=== PATIENT | male | born 1980 | race Caucasian/White ===

== ENCOUNTER 2018-05-31 14:40 | Emergency (ER) | payer OTHER ==
[~2018-05-31] VITALS: Ht 180.3 cm; Wt 72.6 kg
[~2018-05-31 14:40] MED LIST: BACTRIM DS TAB1 EAC1 PO; BACTROBAN CREAM30 G1 TOP; CARISOPRODOL 3350 MG PO; HYDROCODONE-AP1 EAC6 PO; PREDNISONE 20 M20 M1 PO; ZANAFLEX4 MG PO
[2018-05-31 15:12] LABS: ABSOLUTE BASOPHILS 0.1 thou/uL (0.0-0.2); ABSOLUTE EOSINOPHILS 0.4 thou/uL (0.0-0.7); ABSOLUTE LYMPHOCYTES 6.1 thou/uL (0.8-5.3); ABSOLUTE MONOCYTES 0.9 thou/uL (0.0-1.2); ABSOLUTE NEUTROPHILS 4.3 thou/uL (1.6-8.1); BASOPHILS 0.7 %; HEMATOCRIT 51.6 % (42.0-52.0); HEMOGLOBIN 17.6 gm/dL (14.0-18.0); LYMPHOCYTES 52.3 %; MCH 31.3 pg (26.0-34.0); MCHC 34.2 g/dL (28.0-37.0); MCV 91.6 fL (80.0-100.0); MONOCYTES 7.5 %; MPV 6.9 fl. (7.2-11.1); NUCLEATED RBCS 0 /100WBC; PLATELET COUNT* 363 thou/uL (150-400); POLYS 36.5 %; RBC 5.63 mil/uL (4.50-6.00); RDW-CV 13.6 % (10.5-14.5); WBC 11.7 thou/uL (4.0-11.0)
[2018-05-31 15:20] LABS: ANION GAP 10 mmol/L (7-16); BUN 15 mg/dL (7-18); CALCIUM 8.9 mg/dL (8.5-10.1); CHLORIDE 102 mmol/L (98-107); CO2 27 mmol/L (21-32); GLUCOSE 100 mg/dL (70-99); POTASSIUM 3.3 mmol/L (3.5-5.1); SODIUM 139 mmol/L (136-145)
[2018-05-31 15:26] LABS: ALKALINE PHOSPHATASE 108 U/L (46-116); LIPASE 181 U/L (73-393); SGOT 20 U/L (15-37); SGPT 41 U/L (30-65); TOTAL BILIRUBIN 0.7 mg/dL (<0.1-1.0); TROPONIN-I LEVEL <0.06 ng/mL (<0.06)
[2018-05-31] MEDS ORDERED: HYDROXYZINE HCL25 M1 PO (16:06)
[2018-05-31] MEDS ORDERED: XANAX 0.5 MG0.5 MG PO (16:06)
[2018-05-31 16:24] VITALS: BP 132/82
--- NOTE | 2018-06-01 13:50 | EKG ---
[place] [address] ELECTROCARDIOGRAM REPORT Name: MEHRAN FREEMAN Room: [facility].#: [id number] Admission: 05/31/18 Attend Phys: Discharge: 05/31/18 Date of : 82 Report #: [id number] THIS REPORT FOR: //name// [facility] ED Test Date: 2018-05-31 Test Time: 14:54:19 Pat Name: MEHRAN FREEMAN Department: Room: Gender: M Peer Financial Counselor: MARIAJOSE : 1980 Requested By: Iesha Marsh Order Number: [id number] MD: Dimitrios Forrester Measurements Intervals [place] Rate: 117 P: 66 NM: 128 QRS: 39 QRSD: 89 T: 5 QT: 316 QTc: 441 Interpretive Statements Sinus tachycardia Left atrial enlargement RSR' in V1 or V2, probably normal variant No previous ECG available for comparison Electronically Signed On 06-01-2018 13:50:30 LARRY CAR OPERATOR by Dimitrios Forrester [email or web address] <ELECTRONICALLY SIGNED> By: Dimitrios Forrester MD, [facility] 06/01/18 1350 1454 1454 Dimitrios Forrester MD, FACC /EPI
== END 2018-05-31 16:25 | disposition home or self-care (01) ==
LOC: M.ERS 14:40
PROVIDERS: Physician Assistant
DX: F41.9 Anxiety disorder, unspecified (principal); R11.2 Nausea with vomiting, unspecified; R07.89 Other chest pain; F17.200 Nicotine dependence, unspecified, uncomplicated; Z88.1 Allergy status to other antibiotic agents

== ENCOUNTER 2018-07-11 09:56 | Emergency (ER) | payer OTHER ==
[~2018-07-11] VITALS: Ht 180.3 cm; Wt 79.8 kg
[~2018-07-11 09:56] MED LIST changes: +HYDROXYZINE HCL25 M1 PO; +XANAX 0.5 MG0.5 MG PO
[2018-07-11] MEDS ORDERED: LEXAPRO 10 MG T10 M2 PO (10:13)
[2018-07-11] MEDS ORDERED: BUSPIRONE HCL10 MG PO (10:13)
[2018-07-11] MEDS ORDERED: XANAX1 MG PO (10:29)
[2018-07-11 10:54] VITALS: BP 132/80
== END 2018-07-11 10:52 | disposition home or self-care (01) ==
LOC: M.ERS 09:56
DX: F41.9 Anxiety disorder, unspecified (principal); F17.200 Nicotine dependence, unspecified, uncomplicated; Z88.1 Allergy status to other antibiotic agents

== ENCOUNTER 2018-11-23 16:40 | Emergency (ER) | payer OTHER ==
[~2018-11-23] VITALS: Ht 180.3 cm; Wt 70.3 kg
[~2018-11-23 16:40] MED LIST changes: +BUSPIRONE HCL10 MG PO; +LEXAPRO 10 MG T10 M2 PO; +XANAX1 MG PO
[2018-11-23] MEDS ORDERED: VALIUM5 MG PO (17:14)
[2018-11-23] MEDS ORDERED: NORCO 5-325 TA1 EAC1 PO (17:42)
[2018-11-23 18:30] VITALS: BP 139/93
== END 2018-11-23 18:31 | disposition home or self-care (01) ==
LOC: M.ERS 16:40
DX: S42.021A Displaced fracture of shaft of right clavicle, initial encounter for closed fracture (principal); T24.202A Burn of second degree of unspecified site of left lower limb, except ankle and foot, initial encounter; T31.0 Burns involving less than 10% of body surface; F41.0 Panic disorder [episodic paroxysmal anxiety]; Z88.1 Allergy status to other antibiotic agents; X08.8XXA Exposure to other specified smoke, fire and flames, initial encounter; Y93.89 Activity, other specified; Y92.89 Other specified places as the place of occurrence of the external cause; Y99.8 Other external cause status